=== PATIENT | male | born 1965 | race Caucasian/White ===

== ENCOUNTER 2022-08-19 12:26 | Outpatient (CLI) | payer OTHER | END 2022-08-19 12:27 | disposition home or self-care (01) | LOC: LABBT 12:26 | PROVIDERS: ATTEND Specialist | DX: Z01.810 Encounter for preprocedural cardiovascular examination (principal); K76.9 Liver disease, unspecified | CPT/HCPCS: 93005; 93010 ==

== ENCOUNTER 2022-09-07 16:20 | Inpatient (IN) | payer OTHER ==
[~2022-09-07 16:20] MED LIST: Acetaminophen 325 MG TAB PO PRN; Acetaminophen 500 MG TAB ONE; Albumin 5% 1,000 ML ONE; Bupivacaine/Epinephrine 0.25% 30 ML VIAL ONE; Dexamethasone 20 MG/5 ML VIAL ONE; Fentanyl 100 MCG/2 ML VIAL ONE; Glycopyrrolate 0.2 MG/ML 5 ML SYRINGE ONE; HYDROmorphone 0.5 MG/0.5 ML SYRINGE ONE; Ketamine 50 MG/ML (10ML VIAL) ONE; Ketorolac Tromethamine 30 MG/ML VIAL ONE; NEOSTIGMINE 3 MG/3 ML SYR 3 MG/3 ML SYRINGE ONE; Ondansetron ODT 4 MG TAB PO PRN; Ondansetron PF 4 MG/2 ML Vial IVP PRN; Ondansetron PF 4 MG/2 ML Vial ONE; PHENYLEPHRINE-NS 100 MCG/ML 10 ML SYRINGE ONE; Phenylephrine 10 MG/ML VIAL ONE; Piperacillin/Tazobactam 3.375 GM VIAL ONE; Rocuronium Bromide 10 MG/ML (10ML VIAL) ONE; Senokot S 8.6-50 MG TAB PO PRN; Sodium Chloride 0.9% 100 ML ONE; Succinylcholine 200 MG/10 ml SYRINGE FS ONE; fentaNYL Citrate/PF 100 MCG/2 ML SYRINGE ONE
[2022-09-07] MEDS ORDERED: FENTANYL 50 MCG/ML VIAL 50 MCG/ML VIAL ONE ×2 (18:46→20:04)
[2022-09-07] MEDS ORDERED: Promethazine HCl 25 MG/ML VIAL IM PRN ×2 (18:50→19:00)
[2022-09-07] MEDS ORDERED: hydrALAZINE 20 MG/ML VIAL SLOW IVP PRN (18:50)
[2022-09-07] MEDS ORDERED: Ondansetron PF 4 MG/2 ML Vial IVP PRN (18:50)
[2022-09-07] MEDS ORDERED: Morphine 4 MG/ML VIAL SLOW IVP PRN (18:59)
[2022-09-07] MEDS ORDERED: Promethazine HCl 25 MG/ML VIAL IVPB PRN (19:00)
[2022-09-07] MEDS ORDERED: HYDROmorphone 2 MG/ML VIAL SLOW IVP PRN (19:00)
[2022-09-07] MEDS ORDERED: Ondansetron HCl/PF 4 MG/2 ML Vial IVP PRN (19:00)
[2022-09-07] MEDS ORDERED: Morphine Sulfate 2 MG/ML SYRINGE SLOW IVP PRN (19:00)
[2022-09-07] MEDS: Piperacillin/Tazobactam 3.375 GM in Sodium Chloride 0.9% 100 ML IVPB SCH (21:59)
[2022-09-07] MEDS: Famotidine/PF 20 mg/2ml Vial SLOW IVP SCH (21:59)
[2022-09-07] MEDS: D5 1/2 NS w/20 mEq KCL 1,000 ML IV SCH (21:59)
[2022-09-07] MEDS: Famotidine 20 MG TAB PO SCH (22:27)
[2022-09-07 22:58] LABS: Hemoglobin A1c 5.3 % (4.0-6.0)
[2022-09-07 23:10] LABS: Magnesium 1.9 mg/dL (1.6-2.6); Phosphorus 2.5 mg/dL (2.3-4.7)
[2022-09-08 03:10] VITALS: BMI 34.7
[2022-09-08] MEDS: Piperacillin/Tazobactam 3.375 GM in Sodium Chloride 0.9% 100 ML IVPB SCH ×3 (04:51→20:34)
[2022-09-08] MEDS: Ketorolac Tromethamine 30 MG/ML VIAL IVP SCH ×5 (05:05→23:52)
[2022-09-08] MEDS: D5 1/2 NS w/20 mEq KCL 1,000 ML IV SCH ×3 (05:13→20:34)
[2022-09-08 06:55] LABS: #Lymphocytes 0.5 thou/uL (1.20-3.40); #Monocytes 0.3 thou/uL (0.11-0.59); #Neutrophils 6.3 thou/uL (1.40-6.50); %Lymphocytes 7.2 % (21.0-51.0); %Monocytes 3.7 % (0.0-10.0); %Neutrophils 89.1 % (42.0-75.0); Hemoglobin 11.4 g/dL (14.0-18.0); Mean Corpuscular HGB CONC 30.7 g/dL (32.0-36.0); Mean Corpuscular Volume 84.5 fl (78.0-98.0); Mean Platelet Volume 8.7 fL (7.4-10.4); Platelet Count 162 thou/uL (130-400); Red Blood Cell (RBC) Count 4.37 mill/uL (4.70-6.10)
[2022-09-08 07:18] LABS: Anion Gap 10 mmol/L (10-20); BUN (Urea Nitrogen) 14 mg/dL (8.4-25.7); Calc. Creatinine Clearance 160 mL/min (70-130); Carbon Dioxide 22 mmol/L (22-29); Cardiac Risk 9.5 (Less than 4.5); Chloride 107 mmol/L (98-107); Cholesterol 133 mg/dl (< 200 Desired); Estimated GFR 105; Glucose 155 mg/dL (70-105); HDL Cholesterol 14 mg/dL (>60 Neg Risk); LDL Cholesterol, Calculated 89 mg/dL; Potassium 4.3 mmol/L (3.5-5.1); Sodium 135 mmol/L (136-145); Triglycerides 150 mg/dL (Less than 150)
[2022-09-08] MEDS ORDERED: FLU VACC QS2022-23(6MOS UP)/PF 60 MCG/0.5 ML SYRINGE IM ONE (09:00)
[2022-09-08] MEDS ORDERED: Prevnar 13-Val Conj/PF 0.5 ML SYRINGE IM ONE (09:00)
[2022-09-08] MEDS: Enoxaparin Sodium 40 MG/0.4 ML SYRINGE SC SCH (09:36)
[2022-09-08] MEDS: Famotidine 20 MG TAB PO SCH ×2 (09:36→20:35)
[2022-09-08] MEDS: Famotidine/PF 20 mg/2ml Vial SLOW IVP SCH ×2 (09:40→20:28)
[2022-09-08] MEDS: Morphine 4 MG/ML VIAL SLOW IVP PRN ×2 (10:09→20:56)
[2022-09-09] MEDS: D5 1/2 NS w/20 mEq KCL 1,000 ML IV SCH ×2 (00:44→09:38)
[2022-09-09] MEDS: Ketorolac Tromethamine 30 MG/ML VIAL IVP SCH ×4 (04:37→23:58)
[2022-09-09] MEDS: Piperacillin/Tazobactam 3.375 GM in Sodium Chloride 0.9% 100 ML IVPB SCH ×3 (04:37→20:38)
[2022-09-09 06:38] LABS: #Basophils 0.1 thou/uL (0.0-0.2); #Eosinphils 0.1 thou/uL (0.0-0.7); #Monocytes 0.4 thou/uL (0.11-0.59); #Neutrophils 4.1 thou/uL (1.40-6.50); %Basophils 1.6 % (0.0-1.0); %Eosinophils 2.4 % (0.0-10.0); %Lymphocytes 17.1 % (21.0-51.0); Hemoglobin 11.2 g/dL (14.0-18.0); Mean Corpuscular HGB CONC 31.2 g/dL (32.0-36.0); Mean Corpuscular Hemoglobin 26.7 pg (27.0-31.0); Mean Corpuscular Volume 85.6 fl (78.0-98.0); Platelet Count 182 thou/uL (130-400); Red Blood Cell (RBC) Count 4.18 mill/uL (4.70-6.10); White Blood Cell (WBC) Count 5.7 thou/uL (4.8-10.8)
[2022-09-09 06:57] LABS: Anion Gap 11 mmol/L (10-20); BUN (Urea Nitrogen) 16 mg/dL (8.4-25.7); Calc. Creatinine Clearance 164 mL/min (70-130); Calcium 8.6 mg/dL (7.8-10.44); Carbon Dioxide 22 mmol/L (22-29); Chloride 110 mmol/L (98-107); Estimated GFR 106; Glucose 111 mg/dL (70-105); Potassium 4.1 mmol/L (3.5-5.1); Sodium 139 mmol/L (136-145)
[2022-09-09] MEDS: Enoxaparin Sodium 40 MG/0.4 ML SYRINGE SC SCH (09:38)
[2022-09-09] MEDS: Famotidine 20 MG TAB PO SCH ×2 (09:38→20:37)
[2022-09-09] MEDS: Morphine 4 MG/ML VIAL SLOW IVP PRN ×2 (09:39→20:38)
[2022-09-09] MEDS: Famotidine/PF 20 mg/2ml Vial SLOW IVP SCH ×2 (09:40→19:16)
[2022-09-09] MEDS ORDERED: D5 1/2 NS w/20 mEq KCL 1,000 ML IV SCH (16:10)
[2022-09-10] MEDS: Piperacillin/Tazobactam 3.375 GM in Sodium Chloride 0.9% 100 ML IVPB SCH ×3 (05:06→21:02)
[2022-09-10] MEDS: Ketorolac Tromethamine 30 MG/ML VIAL IVP SCH ×4 (05:06→23:45)
[2022-09-10 06:23] LABS: #Eosinphils 0.3 thou/uL (0.0-0.7); #Lymphocytes 0.9 thou/uL (1.20-3.40); #Monocytes 0.5 thou/uL (0.11-0.59); #Neutrophils 3.8 thou/uL (1.40-6.50); %Basophils 0.2 % (0.0-1.0); %Lymphocytes 16.7 % (21.0-51.0); %Monocytes 9.6 % (0.0-10.0); %Neutrophils 68.6 % (42.0-75.0); Hemoglobin 11.1 g/dL (14.0-18.0); Mean Corpuscular HGB CONC 30.7 g/dL (32.0-36.0); Mean Corpuscular Hemoglobin 26.1 pg (27.0-31.0); Mean Corpuscular Volume 85.2 fl (78.0-98.0); Mean Platelet Volume 10.2 fL (7.4-10.4); Platelet Count 167 thou/uL (130-400); RBC Distribution Width 13.2 % (11.5-14.5); Red Blood Cell (RBC) Count 4.26 mill/uL (4.70-6.10); White Blood Cell (WBC) Count 5.5 thou/uL (4.8-10.8)
[2022-09-10 06:49] LABS: Anion Gap 12 mmol/L (10-20); BUN (Urea Nitrogen) 13 mg/dL (8.4-25.7); Calc. Creatinine Clearance 171 mL/min (70-130); Calcium 8.6 mg/dL (7.8-10.44); Carbon Dioxide 20 mmol/L (22-29); Chloride 105 mmol/L (98-107); Estimated GFR 107; Glucose 95 mg/dL (70-105); Potassium 4.1 mmol/L (3.5-5.1); Sodium 133 mmol/L (136-145)
[2022-09-10] MEDS: Famotidine/PF 20 mg/2ml Vial SLOW IVP SCH (08:43)
[2022-09-10] MEDS: Famotidine 20 MG TAB PO SCH ×2 (08:43→21:03)
[2022-09-10] MEDS: Enoxaparin Sodium 40 MG/0.4 ML SYRINGE SC SCH (08:43)
[2022-09-10] MEDS: Polyethylene Glycol 3350 17 GM Packet PO SCH ×2 (08:52→21:03)
[2022-09-11] MEDS: Piperacillin/Tazobactam 3.375 GM in Sodium Chloride 0.9% 100 ML IVPB SCH ×3 (04:09→20:23)
[2022-09-11 06:13] LABS: #Eosinphils 0.3 thou/uL (0.0-0.7); #Monocytes 0.4 thou/uL (0.11-0.59); #Neutrophils 4.3 thou/uL (1.40-6.50); %Basophils 0.2 % (0.0-1.0); %Eosinophils 4.6 % (0.0-10.0); %Lymphocytes 16.8 % (21.0-51.0); %Monocytes 6.2 % (0.0-10.0); %Neutrophils 72.2 % (42.0-75.0); Hemoglobin 12.6 g/dL (14.0-18.0); Mean Corpuscular HGB CONC 31.8 g/dL (32.0-36.0); Mean Corpuscular Hemoglobin 26.6 pg (27.0-31.0); Mean Corpuscular Volume 83.7 fl (78.0-98.0); Mean Platelet Volume 8.4 fL (7.4-10.4); Platelet Count 235 thou/uL (130-400); Red Blood Cell (RBC) Count 4.75 mill/uL (4.70-6.10)
[2022-09-11 06:27] LABS: Anion Gap 12 mmol/L (10-20); BUN (Urea Nitrogen) 10 mg/dL (8.4-25.7); Calc. Creatinine Clearance 155 mL/min (70-130); Calcium 9.1 mg/dL (7.8-10.44); Carbon Dioxide 23 mmol/L (22-29); Chloride 107 mmol/L (98-107); Estimated GFR 104; Glucose 112 mg/dL (70-105); Potassium 3.8 mmol/L (3.5-5.1); Sodium 138 mmol/L (136-145)
[2022-09-11] MEDS: Enoxaparin Sodium 40 MG/0.4 ML SYRINGE SC SCH (09:03)
[2022-09-11] MEDS: Polyethylene Glycol 3350 17 GM Packet PO SCH ×2 (09:04→20:24)
[2022-09-11] MEDS: Famotidine 20 MG TAB PO SCH ×2 (09:04→20:24)
[2022-09-11] MEDS ORDERED: HYDROcodone/Acetaminophen 7.5/325 mg Tablet PO PRN (10:21)
[2022-09-12] MEDS: Piperacillin/Tazobactam 3.375 GM in Sodium Chloride 0.9% 100 ML IVPB SCH ×2 (03:04→11:47)
[2022-09-12 06:20] LABS: #Eosinphils 0.3 thou/uL (0.0-0.7); #Lymphocytes 1.2 thou/uL (1.20-3.40); #Monocytes 0.5 thou/uL (0.11-0.59); #Neutrophils 4.3 thou/uL (1.40-6.50); %Basophils 0.6 % (0.0-1.0); %Eosinophils 4.5 % (0.0-10.0); %Lymphocytes 18.9 % (21.0-51.0); %Monocytes 8.1 % (0.0-10.0); %Neutrophils 67.9 % (42.0-75.0); Hemoglobin 12.3 g/dL (14.0-18.0); Mean Corpuscular HGB CONC 32.2 g/dL (32.0-36.0); Mean Corpuscular Hemoglobin 26.8 pg (27.0-31.0); Mean Corpuscular Volume 83.3 fl (78.0-98.0); Mean Platelet Volume 8.3 fL (7.4-10.4); Platelet Count 241 thou/uL (130-400); Red Blood Cell (RBC) Count 4.57 mill/uL (4.70-6.10); White Blood Cell (WBC) Count 6.3 thou/uL (4.8-10.8)
[2022-09-12 06:50] LABS: Anion Gap 12 mmol/L (10-20); BUN (Urea Nitrogen) 10 mg/dL (8.4-25.7); Calc. Creatinine Clearance 153 mL/min (70-130); Carbon Dioxide 25 mmol/L (22-29); Chloride 106 mmol/L (98-107); Estimated GFR 104; Glucose 91 mg/dL (70-105); Potassium 4.1 mmol/L (3.5-5.1); Sodium 139 mmol/L (136-145)
[2022-09-12] MEDS: Enoxaparin Sodium 40 MG/0.4 ML SYRINGE SC SCH (08:20)
[2022-09-12] MEDS: Famotidine 20 MG TAB PO SCH (08:20)
[2022-09-12] MEDS: Polyethylene Glycol 3350 17 GM Packet PO SCH (08:20)
[2022-09-12 08:53] VITALS: BP 129/75; TEMP 98
[2022-09-13] MEDS ORDERED: Polyethylene Glycol 3350 17 GM Packet PO SCH (09:00)
== END 2022-09-12 16:05 | disposition home or self-care (01) | DRG 329 ==
LOC: SDC/OP 16:20 → T4-A 21:14
PROVIDERS: ADMIT Specialist; ATTEND Hospitalist
PROC: 0D1L0Z4 Bypass Transverse Colon to Cutaneous, Open Approach (ICD-10-PCS; principal; 2022-09-07)
PROC: 0JH60WZ Insertion of Totally Implantable Vascular Access Device into Chest Subcutaneous Tissue and Fascia, Open Approach (ICD-10-PCS; 2022-09-07)
PROC: 0W9G40Z Drainage of Peritoneal Cavity with Drainage Device, Percutaneous Endoscopic Approach (ICD-10-PCS; 2022-09-07)
PROC: 02HV33Z Insertion of Infusion Device into Superior Vena Cava, Percutaneous Approach (ICD-10-PCS; 2022-09-07)
PROC: B5181ZA Fluoroscopy of Superior Vena Cava using Low Osmolar Contrast, Guidance (ICD-10-PCS; 2022-09-07)
PROC: 30233J1 Transfusion of Nonautologous Serum Albumin into Peripheral Vein, Percutaneous Approach (ICD-10-PCS; 2022-09-07)
DX: C19 Malignant neoplasm of rectosigmoid junction (principal); K63.1 Perforation of intestine (nontraumatic); K65.1 Peritoneal abscess; U07.1 COVID-19; E66.01 Morbid (severe) obesity due to excess calories; Z79.899 Other long term (current) drug therapy; Z87.891 Personal history of nicotine dependence; Z68.34 Body mass index [BMI] 34.0-34.9, adult
CPT/HCPCS: 36415; 71045; 80048; 80061; 83036; 83735; 84100; 84443; 85025; 87070; 87205; 97139; C1788; C1889; J1100; J1170; J1642; J1650; J1885; J2270; J2370; J2405; J2543; J3010; J3480; J3490; P9045; S0028

== ENCOUNTER 2022-09-16 08:00 | Outpatient (CLI) | payer OTHER | END 2022-09-16 08:01 | disposition home or self-care (01) | LOC: PET 08:00 | PROVIDERS: ATTEND Internal Medicine Hematology & Oncology | DX: C20 Malignant neoplasm of rectum (principal); C96.9 Malignant neoplasm of lymphoid, hematopoietic and related tissue, unspecified; C78.7 Secondary malignant neoplasm of liver and intrahepatic bile duct | CPT/HCPCS: 78815; A9552 ==

== ENCOUNTER 2022-11-20 10:05 | Emergency (ER) | payer OTHER | END 2022-11-20 11:57 | disposition home or self-care (01) | LOC: ERS 10:05 | DX: K94.09 Other complications of colostomy (principal) | CPT/HCPCS: 99283 ==

== ENCOUNTER 2023-06-13 09:30 | Inpatient (IN) | payer OTHER ==
[2023-06-10 15:32] VITALS: BMI 37.6
[2023-06-13] MEDS ORDERED: EPINEPHrine 1 MG/ML AMP ONE ×2 (10:09→10:45)
[2023-06-13] MEDS ORDERED: Midazolam HCl 2 mg/2 ml Vial ONE (10:09)
[2023-06-13] MEDS ORDERED: fentaNYL 50 mcg/mL 1 mL Vial ONE ×2 (10:09→16:12)
[2023-06-13] MEDS ORDERED: Bupivacaine PF 0.5% 30 ML VIAL ONE (10:09)
[2023-06-13] MEDS ORDERED: Lidocaine 1% (PF) 30 ML VIAL ONE (10:45)
[2023-06-13] MEDS ORDERED: Bupivacaine 0.25% HCL 30 ML VIAL ONE (10:45)
[2023-06-13] MEDS ORDERED: Acetaminophen 500 MG TAB ONE (11:13)
[2023-06-13] MEDS ORDERED: Ketorolac Tromethamine 30 MG/ML VIAL ONE (11:13)
[2023-06-13 11:45] LABS: #Eosinphils 0.1 thou/uL (0.0-0.7); #Monocytes 0.4 thou/uL (0.11-0.59); #Neutrophils 2.8 thou/uL (1.40-6.50); %Basophils 0.5 % (0.0-1.0); %Eosinophils 1.9 % (0.0-10.0); %Lymphocytes 22.6 % (21.0-51.0); %Monocytes 8.3 % (0.0-10.0); %Neutrophils 66.5 % (42.0-75.0); Hemoglobin 12.7 g/dL (14.0-18.0); Mean Corpuscular HGB CONC 32.1 g/dL (32.0-36.0); Mean Corpuscular Hemoglobin 28.6 pg (27.0-31.0); Mean Corpuscular Volume 89.2 fl (78.0-98.0); Platelet Count 170 10x3/uL (130-400); RBC Distribution Width 13.2 % (11.5-14.5); Red Blood Cell (RBC) Count 4.44 mill/uL (4.70-6.10); White Blood Cell (WBC) Count 4.2 10x3/uL (4.8-10.8)
[2023-06-13] MEDS ORDERED: SUGAMMADEX SODIUM 200 MG/2 ML VIAL ONE (11:53)
[2023-06-13] MEDS ORDERED: Fentanyl 250 MCG/5 ML VIAL ONE (11:53)
[2023-06-13 12:16] LABS: Anion Gap 12 mmol/L (10-20); BUN (Urea Nitrogen) 15 mg/dL (8.4-25.7); Calc. Creatinine Clearance 150 mL/min (70-130); Calcium 9.2 mg/dL (7.8-10.44); Carbon Dioxide 26 mmol/L (22-29); Chloride 104 mmol/L (98-107); Estimated GFR 101; Glucose 86 mg/dL (70-105); Potassium 3.7 mmol/L (3.5-5.1); Sodium 138 mmol/L (136-145)
[2023-06-13 12:18] LABS: Hemoglobin A1c 5.2 % (4.0-6.0)
[2023-06-13] MEDS ORDERED: cefOXitin 2 GM VIAL ONE (12:19)
[2023-06-13] MEDS ORDERED: Sodium Chloride 0.9% 100 ML ONE (12:19)
[2023-06-13] MEDS ORDERED: PROPOFOL 200 MG/20 ML VIAL ONE (12:41)
[2023-06-13] MEDS ORDERED: ePHEDrine Sulfate 50 MG/10 ML VIAL ONE (12:41)
[2023-06-13] MEDS ORDERED: Rocuronium Bromide 10 MG/ML (10ML VIAL) ONE (12:41)
[2023-06-13] MEDS ORDERED: Vecuronium 10 MG VIAL ONE (12:41)
[2023-06-13] MEDS ORDERED: Methylene Blue 50 MG/10 ML AMPUL ONE (13:54)
[2023-06-13] MEDS ORDERED: Ondansetron PF 4 MG/2 ML Vial IVP PRN (15:56)
[2023-06-13] MEDS ORDERED: Ipratropium/Albuterol 3 ML NEB NEB PRN (15:56)
[2023-06-13] MEDS ORDERED: Promethazine HCl 25 MG/ML VIAL IM PRN (15:56)
[2023-06-13] MEDS ORDERED: Morphine 2 MG/ML VIAL SLOW IVP PRN (15:56)
[2023-06-13] MEDS ORDERED: hydrALAZINE 20 MG/ML VIAL SLOW IVP PRN (15:56)
[2023-06-13] MEDS: D5 1/2 NS w/20 mEq KCL 1,000 ML IV SCH (17:05)
[2023-06-13] MEDS: Ketorolac Tromethamine 30 MG/ML VIAL IVP SCH (17:05)
[2023-06-13] MEDS: Morphine 4 MG/ML VIAL SLOW IVP PRN (21:03)
[2023-06-13] MEDS: Famotidine 20 MG TAB PO SCH (21:04)
[2023-06-13] MEDS: Famotidine/PF 20 mg/2ml Vial SLOW IVP SCH (21:05)
[2023-06-14] MEDS: Ketorolac Tromethamine 30 MG/ML VIAL IVP SCH ×5 (00:53→23:55)
[2023-06-14] MEDS: Morphine 4 MG/ML VIAL SLOW IVP PRN (03:54)
[2023-06-14] MEDS: D5 1/2 NS w/20 mEq KCL 1,000 ML IV SCH ×4 (05:45→17:52)
[2023-06-14] MEDS: Famotidine 20 MG TAB PO SCH ×2 (09:03→19:33)
[2023-06-14] MEDS: Famotidine/PF 20 mg/2ml Vial SLOW IVP SCH ×2 (09:03→21:33)
[2023-06-14 09:24] LABS: #Monocytes 0.2 thou/uL (0.11-0.59); #Neutrophils 4.3 thou/uL (1.40-6.50); %Basophils 0.2 % (0.0-1.0); %Eosinophils 0.8 % (0.0-10.0); %Lymphocytes 12.9 % (21.0-51.0); %Monocytes 4.5 % (0.0-10.0); %Neutrophils 81.4 % (42.0-75.0); Hemoglobin 11.6 g/dL (14.0-18.0); Mean Corpuscular Volume 90.3 fl (78.0-98.0); Platelet Count 160 10x3/uL (130-400); RBC Distribution Width 13.3 % (11.5-14.5); Red Blood Cell (RBC) Count 4.14 mill/uL (4.70-6.10); White Blood Cell (WBC) Count 5.3 10x3/uL (4.8-10.8)
[2023-06-14 10:54] LABS: Anion Gap 11 mmol/L (10-20); BUN (Urea Nitrogen) 10 mg/dL (8.4-25.7); Calc. Creatinine Clearance 164 mL/min (70-130); Calcium 8.3 mg/dL (7.8-10.44); Carbon Dioxide 23 mmol/L (22-29); Chloride 107 mmol/L (98-107); Estimated GFR 104; Glucose 151 mg/dL (70-105); Potassium 4.6 mmol/L (3.5-5.1); Sodium 136 mmol/L (136-145)
[2023-06-14] MEDS ORDERED: HYDROcodone/Acetaminophen 7.5/325 mg Tablet PO PRN ×2 (15:54)
[2023-06-15] MEDS: D5 1/2 NS w/20 mEq KCL 1,000 ML IV SCH ×3 (02:45→10:28)
[2023-06-15] MEDS: Ketorolac Tromethamine 30 MG/ML VIAL IVP SCH ×2 (05:14→11:32)
[2023-06-15] MEDS: Famotidine/PF 20 mg/2ml Vial SLOW IVP SCH (08:15)
[2023-06-15] MEDS: Famotidine 20 MG TAB PO SCH (08:53)
[2023-06-15 08:59] VITALS: BP 127/77; TEMP 98
== END 2023-06-15 13:00 | disposition home or self-care (01) | DRG 329 ==
LOC: SURG A 09:53 → SURG B 16:43
PROVIDERS: ADMIT Specialist; ATTEND Specialist
PROC: 0DQ84ZZ Repair Small Intestine, Percutaneous Endoscopic Approach (ICD-10-PCS; principal; 2023-06-13)
PROC: 0DJD0ZZ Inspection of Lower Intestinal Tract, Open Approach (ICD-10-PCS; 2023-06-13)
PROC: 0W9J40Z Drainage of Pelvic Cavity with Drainage Device, Percutaneous Endoscopic Approach (ICD-10-PCS; 2023-06-13)
DX: C20 Malignant neoplasm of rectum (principal); K63.1 Perforation of intestine (nontraumatic); Z98.890 Other specified postprocedural states; Z87.891 Personal history of nicotine dependence
CPT/HCPCS: 36416; 71045; 80048; 83036; 85025; 93005; 93010; J0171; J0694; J1642; J1650; J1885; J2001; J2250; J2270; J2704; J3010; J3480; J3490; Q9968; S0020

== ENCOUNTER 2023-10-22 10:07 | Emergency (ER) | payer BC ==
[2023-10-22 10:39] LABS: #Eosinphils 0.1 thou/uL (0.0-0.7); #Monocytes 0.2 thou/uL (0.11-0.59); #Neutrophils 2.1 thou/uL (1.40-6.50); %Basophils 0.3 % (0.0-1.0); %Eosinophils 2.4 % (0.0-10.0); %Lymphocytes 21.1 % (21.0-51.0); %Monocytes 5.8 % (0.0-10.0); %Neutrophils 70.1 % (42.0-75.0); Hematocrit 44.5 % (42.0-52.0); Hemoglobin 14.5 g/dL (14.0-18.0); Mean Corpuscular HGB CONC 32.6 g/dL (32.0-36.0); Mean Corpuscular Hemoglobin 28.1 pg (27.0-31.0); Mean Corpuscular Volume 86.2 fl (78.0-98.0); Mean Platelet Volume 9.7 fL (7.4-10.4); Platelet Count 180 10x3/uL (130-400); RBC Distribution Width 15.9 % (11.5-14.5); Red Blood Cell (RBC) Count 5.16 mill/uL (4.70-6.10); White Blood Cell (WBC) Count 2.9 10x3/uL (4.8-10.8)
[2023-10-22] MEDS ORDERED: Ondansetron PF 4 MG/2 ML Vial ONE (10:55)
[2023-10-22] MEDS ORDERED: Pantoprazole 40 MG VIAL ONE (10:56)
[2023-10-22 11:05] LABS: ALT (SGPT) 34 U/L (8-55); AST (SGOT) 20 U/L (5-34); Albumin 3.8 g/dL (3.5-5.0); Alkaline Phosphatase 69 U/L (40-110); Anion Gap 11 mmol/L (10-20); BUN (Urea Nitrogen) 19 mg/dL (8.4-25.7); Bilirubin, Total 1.1 mg/dL (0.2-1.2); Calc. Creatinine Clearance 0 mL/min (70-130); Calcium 8.8 mg/dL (7.8-10.44); Carbon Dioxide 23 mmol/L (22-29); Chloride 103 mmol/L (98-107); Estimated GFR 105; Globulin 3.1 g/dL (2.4-3.5); Glucose 121 mg/dL (70-105); Lipase 12 U/L (8-78); Potassium 3.7 mmol/L (3.5-5.1); Protein, Total 6.9 g/dL (6.0-8.3); Sodium 133 mmol/L (136-145)
[2023-10-22] MEDS ORDERED: Iopamidol-370 76% 500 ML MDV (1 ML CHARGE) ONE (14:28)
== END 2023-10-22 14:33 | disposition home or self-care (01) ==
LOC: ERS 10:07
DX: R10.12 Left upper quadrant pain (principal); R11.0 Nausea
CPT/HCPCS: 36415; 74177; 80053; 82274; 83690; 85025; 96361; 96374; 96375; C9113; J2405; Q9967

== ENCOUNTER 2024-08-24 19:53 | Inpatient (IN) | payer BC ==
[2024-08-24 20:52] LABS: #Basophils 0.05 10x3/uL (0.0-0.2); %Basophils 0.6 % (0.0-1.0); %Eosinophils 0.8 % (0.0-10.0); %Lymphocytes 13.4 % (21.0-51.0); %Monocytes 12.7 % (0.0-10.0); %Neutrophils 70.6 % (42.0-75.0); Hemoglobin 13.5 g/dL (14.0-18.0); Mean Corpuscular HGB CONC 30.7 g/dL (32.0-36.0); Mean Corpuscular Hemoglobin 26.8 pg (27.0-31.0); Mean Corpuscular Volume 87.3 fL (78.0-98.0); Mean Platelet Volume 11.2 fL (7.4-10.4); Platelet Count 294 10x3/uL (130-400); RBC Distribution Width 18.1 % (11.5-14.5); Red Blood Cell (RBC) Count 5.04 mill/uL (4.70-6.10)
[2024-08-24 21:12] LABS: Magnesium 2.4 mg/dL (1.6-2.6)
[2024-08-24 21:13] LABS: ALT (SGPT) 54 U/L (8-55); AST (SGOT) 34 U/L (5-34); Albumin 3.9 g/dL (3.4-4.8); Alkaline Phosphatase 149 U/L (40-110); Anion Gap 20 mmol/L (10-20); BUN (Urea Nitrogen) 18 mg/dL (8.4-25.7); Bilirubin, Total 0.5 mg/dL (0.2-1.2); Calc. Creatinine Clearance 0 mL/min (70-130); Calcium 10.6 mg/dL (7.8-10.44); Carbon Dioxide 18 mmol/L (23-31); Chloride 104 mmol/L (98-107); Estimated GFR 75; Globulin 4.2 g/dL (2.4-3.5); Glucose 161 mg/dL (80-115); Lipase 12 U/L (8-78); Potassium 3.4 mmol/L (3.5-5.1); Protein, Total 8.1 g/dL (5.8-8.1); Sodium 139 mmol/L (136-145)
[2024-08-24 21:14] LABS: Troponin I 0.011 ng/mL (< 0.028)
[2024-08-24] MEDS ORDERED: Potassium Chloride 20 MEQ TAB ONE (21:47)
[2024-08-25 00:15] LABS: Lactic Acid 1.05 mmol/L (0.5-2.2)
[2024-08-25] MEDS ORDERED: Acetaminophen 650 MG Suppository PR PRN (02:29)
[2024-08-25] MEDS ORDERED: Ondansetron PF 4 MG/2 ML Vial IVP PRN (02:29)
[2024-08-25] MEDS ORDERED: Ondansetron ODT 4 MG TAB PO PRN (02:29)
[2024-08-25] MEDS ORDERED: Electrolyte Replacement Protocol 1 EACH FS PRN (02:29)
[2024-08-25 04:05] LABS: #Basophils 0.05 10x3/uL (0.0-0.2); %Basophils 0.9 % (0.0-1.0); %Eosinophils 1.1 % (0.0-10.0); %Lymphocytes 19.4 % (21.0-51.0); %Monocytes 17.2 % (0.0-10.0); %Neutrophils 59.6 % (42.0-75.0); Hematocrit 42.7 % (42.0-52.0); Hemoglobin 12.9 g/dL (14.0-18.0); Mean Corpuscular HGB CONC 30.2 g/dL (32.0-36.0); Mean Corpuscular Hemoglobin 26.5 pg (27.0-31.0); Mean Corpuscular Volume 87.7 fL (78.0-98.0); Platelet Count 254 10x3/uL (130-400); RBC Distribution Width 17.7 % (11.5-14.5); Red Blood Cell (RBC) Count 4.87 mill/uL (4.70-6.10)
[2024-08-25] MEDS: Lactated Ringer's 500 ML IV SCH (04:06)
[2024-08-25 04:19] LABS: Anion Gap 14 mmol/L (10-20); BUN (Urea Nitrogen) 19 mg/dL (8.4-25.7); Calc. Creatinine Clearance 155 mL/min (70-130); Calcium 9.8 mg/dL (7.8-10.44); Carbon Dioxide 18 mmol/L (23-31); Chloride 110 mmol/L (98-107); Estimated GFR 103; Glucose 121 mg/dL (80-115); Potassium 3.3 mmol/L (3.5-5.1); Sodium 139 mmol/L (136-145)
[2024-08-25] MEDS ORDERED: Acetaminophen 325 MG TAB ONE (06:03)
[2024-08-25] MEDS: Acetaminophen 325 MG TAB PO SCH (06:07)
[2024-08-25] MEDS: Potassium Chloride 20 MEQ TAB PO SCH ×3 (09:35→14:27)
[2024-08-25] MEDS: Famotidine 20 MG TAB PO SCH (09:35)
[2024-08-25] MEDS: Famotidine/PF 20 mg/2ml Vial SLOW IVP SCH (09:45)
[2024-08-25 13:23] VITALS: BMI 34.1
[2024-08-25 13:59] LABS: Potassium 3.3 mmol/L (3.5-5.1)
[2024-08-25 18:57] LABS: Potassium 3.9 mmol/L (3.5-5.1)
[2024-08-25 20:40] LABS: Potassium 3.9 mmol/L (3.5-5.1)
[2024-08-26 08:20] VITALS: BP 113/74
[2024-08-26 10:34] LABS: Anion Gap 15 mmol/L (10-20); BUN (Urea Nitrogen) 21 mg/dL (8.4-25.7); Calc. Creatinine Clearance 148 mL/min (70-130); Calcium 9.6 mg/dL (7.8-10.44); Carbon Dioxide 21 mmol/L (23-31); Chloride 105 mmol/L (98-107); Estimated GFR 101; Glucose 113 mg/dL (80-115); Potassium 3.7 mmol/L (3.5-5.1); Sodium 137 mmol/L (136-145)
[2024-08-26 12:32] VITALS: TEMP 97.5
[2024-08-26] MEDS: Heparin 1,000 UNITS/ML VIAL CATH SCH (13:39)
[2024-08-27 06:45] LABS: Campy jejuni + coli by PCR Negative (Negative); STEC Shiga Toxin 1+2 Negative (Negative); Salmonella spp. by PCR Negative (Negative); Shigella spp + EIEC by PCR Negative (Negative)
== END 2024-08-26 14:04 | disposition home or self-care (01) | DRG 392 ==
LOC: ERS 19:53 → ERHOLD 08-25 00:09 → 2SW 08-25 07:55 → OBSVTOIN 08-25 15:29
PROVIDERS: ADMIT Student in an Organized Health Care Education/Training Program; ATTEND Student in an Organized Health Care Education/Training Program
DX: A08.4 Viral intestinal infection, unspecified (principal); C18.9 Malignant neoplasm of colon, unspecified; K91.1 Postgastric surgery syndromes; Z79.899 Other long term (current) drug therapy; Z98.890 Other specified postprocedural states; E86.0 Dehydration; E87.6 Hypokalemia; Z93.3 Colostomy status
CPT/HCPCS: 36415; 71045; 80048; 80053; 83605; 83690; 83735; 84484; 85025; 87040; 87324; 87428; 87449; 87505; 93005; 94760; G0378; J1644; J7120

== ENCOUNTER 2024-09-20 10:15 | Outpatient (CLI) | payer BC | END 2024-09-20 10:16 | disposition home or self-care (01) | LOC: PET 10:15 | PROVIDERS: ATTEND Internal Medicine Hematology & Oncology | DX: C20 Malignant neoplasm of rectum (principal); C78.7 Secondary malignant neoplasm of liver and intrahepatic bile duct | CPT/HCPCS: 78815; A9552 ==

== ENCOUNTER 2024-10-30 08:53 | Inpatient (IN) | payer BC ==
[2024-10-30 10:10] LABS: ALT (SGPT) 24 U/L (8-55); AST (SGOT) 14 U/L (5-34); Albumin 3.2 g/dL (3.4-4.8); Alkaline Phosphatase 123 U/L (40-110); Anion Gap 15 mmol/L (10-20); BUN (Urea Nitrogen) 16 mg/dL (8.4-25.7); Bilirubin, Total 0.6 mg/dL (0.2-1.2); Calc. Creatinine Clearance 0 mL/min (70-130); Calcium 8.8 mg/dL (7.8-10.44); Carbon Dioxide 20 mmol/L (23-31); Chloride 104 mmol/L (98-107); Estimated GFR 107; Globulin 3.1 g/dL (2.4-3.5); Glucose 111 mg/dL (80-115); Lipase 10 U/L (8-78); Potassium 3.8 mmol/L (3.5-5.1); Protein, Total 6.3 g/dL (5.8-8.1); Sodium 135 mmol/L (136-145)
[2024-10-30 10:12] LABS: Hematocrit 34.1 % (42.0-52.0); Hemoglobin 10.5 g/dL (14.0-18.0); Mean Corpuscular HGB CONC 30.8 g/dL (32.0-36.0); Mean Corpuscular Hemoglobin 25.4 pg (27.0-31.0); Mean Corpuscular Volume 82.6 fL (78.0-98.0); Platelet Count 217 10x3/uL (130-400); RBC Distribution Width 18.1 % (11.5-14.5); Red Blood Cell (RBC) Count 4.13 mill/uL (4.70-6.10)
[2024-10-30 10:15] LABS: Bacteria/HPF None Seen HPF (None Seen); Bilirubin Negative (Negative); Blood, Urine 2+ (Negative); CAUTI Indications for Culture Pelvic or flank pain; Clarity Clear (Clear); Glucose, Urine (Dipstick) Normal (Negative); Ketone, Urine Negative (Negative); Leukocyte 25 Leu/uL (Negative); Nitrite Negative (Negative); Protein, Urine (Dipstick) 20 mg/dL (Neg-Trace); RBC/HPF 21-50 HPF (0-3); Specific Gravity, Urine 1.024 (1.002-1.036); Squamous Epithelial 0-3 HPF (0-3); Urobilinogen Normal mg/dL (Less than 2); pH, Urine 6.5 (5.0-9.0)
[2024-10-30 10:19] LABS: Urine Culture Reflex No No
[2024-10-30] MEDS ORDERED: Ondansetron PF 4 MG/2 ML Vial ONE ×2 (10:42→13:10)
[2024-10-30] MEDS ORDERED: Morphine 4 MG/ML VIAL ONE (10:42)
[2024-10-30 11:03] LABS: Band 12 % (5-11); Dohle Bodies SLIGHT; Lymphocytes 12 % (21-51); Monocytes 11 % (0-10); Neutrophil 65 % (42-75); Platelet Adequacy Comment Platelets Normal; Polychromasia SLIGHT = 2-3 cells HPF (0-2); Tear Drops SLIGHT = 2-5 cells HPF (0-1)
[2024-10-30] MEDS ORDERED: Benzocaine 20% Spray 60 ML CAN ONE (12:51)
[2024-10-30] MEDS ORDERED: Ondansetron PF 4 MG/2 ML Vial IVP PRN (13:43)
[2024-10-30] MEDS ORDERED: Ondansetron ODT 4 MG TAB PO PRN (13:43)
[2024-10-30] MEDS ORDERED: Electrolyte Replacement Protocol 1 EACH FS SCH (13:45)
[2024-10-30] MEDS ORDERED: Iopamidol-370 76% 500 ML MDV (1 ML CHARGE) ONE (13:47)
[2024-10-30] MEDS ORDERED: Electrolyte Replacement Protocol FS PRN (14:00)
[2024-10-30 15:20] VITALS: BMI 36.1
[2024-10-30] MEDS: NS 0.9% w/ 20 MEQ KCL 1,000 ML/1,000 ML BAG IV SCH (15:32)
[2024-10-30] MEDS: Ketorolac Tromethamine 30 MG (1 mL) VIAL IVP PRN (16:18)
[2024-10-31 06:55] LABS: Hematocrit 32.8 % (42.0-52.0); Hemoglobin 9.7 g/dL (14.0-18.0); Mean Corpuscular HGB CONC 29.6 g/dL (32.0-36.0); Mean Corpuscular Hemoglobin 25.2 pg (27.0-31.0); Mean Corpuscular Volume 85.2 fL (78.0-98.0); Mean Platelet Volume 10.2 fL (7.4-10.4); Platelet Count 207 10x3/uL (130-400); RBC Distribution Width 18.7 % (11.5-14.5); Red Blood Cell (RBC) Count 3.85 mill/uL (4.70-6.10)
[2024-10-31 07:06] LABS: Anion Gap 14 mmol/L (10-20); BUN (Urea Nitrogen) 18 mg/dL (8.4-25.7); Calc. Creatinine Clearance 174 mL/min (70-130); Calcium 8.4 mg/dL (7.8-10.44); Carbon Dioxide 24 mmol/L (23-31); Chloride 108 mmol/L (98-107); Estimated GFR 105; Glucose 87 mg/dL (80-115); Potassium 4.1 mmol/L (3.5-5.1); Sodium 142 mmol/L (136-145)
[2024-10-31 07:50] LABS: Anisocytosis SLIGHT = 6-15 cells HPF (0-5); Band 7 % (5-11); Eosinophils 5 % (0-10); Lymphocytes 17 % (21-51); Macrocytosis SLIGHT = 6-15 cells HPF (0-5); Monocytes 16 % (0-10); Neutrophil 55 % (42-75); Ovalocytes SLIGHT = 2-5 cells HPF (0-1); Platelet Adequacy Comment Platelets Normal; Polychromasia SLIGHT = 2-3 cells HPF (0-2); Tear Drops SLIGHT = 2-5 cells HPF (0-1)
[2024-11-01 07:44] VITALS: BP 130/79; TEMP 97.7
== END 2024-11-01 11:36 | disposition home or self-care (01) | DRG 389 ==
LOC: ERS 08:53 → SURG B 14:42
PROVIDERS: ADMIT Internal Medicine; ATTEND Internal Medicine
DX: K56.600 Partial intestinal obstruction, unspecified as to cause (principal); C18.9 Malignant neoplasm of colon, unspecified; C78.7 Secondary malignant neoplasm of liver and intrahepatic bile duct; K59.00 Constipation, unspecified; E86.0 Dehydration; E66.9 Obesity, unspecified; D63.8 Anemia in other chronic diseases classified elsewhere; Z68.36 Body mass index [BMI] 36.0-36.9, adult
CPT/HCPCS: 36415; 74018; 74177; 80048; 80053; 81001; 83690; 85025; 96374; 96375; J1642; J1885; J2272; J2405; J3480; Q9967